=== PATIENT | male | born 1950 | race Caucasian/White ===

== ENCOUNTER 2018-04-19 12:13 | Emergency (ER) | payer SELFPAY ==
[2018-04-19 12:37] VITALS: BP 109/64
--- NOTE | 2018-04-19 12:52 | UC ---
Lower Extremity/Ankle HPI - History of Current Complaint Chief Complaint: UCLowerExtremity Stated Complaint: FOOT SWOLLEN Time Seen by Provider: 04/19/18 12:42 Hx Obtained From: Patient, Family/[employer] Onset/Duration: Gradual Onset - started exp R ankle swelling 1 week ago (before flying to [place] 2 days later L ankle swelled. swelling persists today, painful if pressure applied, denies calf redness or swelling. is taking B/P meds as rx' d. denies injury Severity Initially: Mild Severity Currently: Moderate Pain Intensity: 7 Aggravating Factor(s): Ambulation Alleviating Factor(s): Rest, Elevation Able to Bear Weight: Yes - Risk Factors DVT Risk Factors: Recent Travel - flew from [place] - Allergies/Home Medications Allergies/Adverse Reactions: Allergies Allergy/AdvReac Type Severity Reaction Status Date / Time No Known Allergies Allergy Verified 04/19/18 12:36 Home Medications: Home Medications Metoprolol Tartrate TAB* [Lopressor TAB*] 50 mg PO BID 04/19/18 [History Confirmed 04/19/18] amLODIPine TAB* [Norvasc 5 mg TAB*] 5 mg PO DAILY 04/19/18 [History Confirmed ] PMH/Surg Hx/FS Hx/Imm Hx Previously Healthy: Yes Cardiovascular History: Hypertension - Surgical History Surgical History: None - Family History Known Family History: Positive: Hypertension - Social History Occupation: Retired - [employer] Lives: With Family Alcohol Use: None Substance Use Type: None Smoking Status (MU): Former Smoker When Did the Patient Quit Smoking/Using Tobacco: 25 yrs ago Review of Systems Constitutional: Negative Skin: Negative Respiratory: Negative Cardiovascular: Negative Motor: Negative Neurovascular: Negative Musculoskeletal: Negative Neurological: Negative Psychological: Negative Is Patient Immunocompromised?: No All Other Systems Reviewed And Are Negative: Yes Physical Exam Triage Information Reviewed: Yes Appearance: Well-Appearing, No Pain Distress, Well-Nourished Vital Signs: Initial Vital Signs Temp 97.6 F 04/19/18 12:28 Pulse 51 04/19/18 12:28 Resp 16 04/19/18 12:28 BP 109/64 04/19/18 12:28 Pulse Ox 98 04/19/18 12:28 Vital Signs Reviewed: Yes Respiratory Exam: Normal Respiratory: Positive: Lungs clear, Normal breath sounds Cardiovascular Exam: Normal Cardiovascular: Positive: RRR, No Murmur, Pulses Normal, Brisk Capillary Refill , Other: - bilateral mild, nonpitting ankle swelling. no calf redness or swelling, neg Paula's sign. strong pedal pulses Musculoskeletal Exam: Normal Musculoskeletal: Positive: Strength Intact, ROM Intact Neurological Exam: Normal Neurological: Positive: Alert Psychological Exam: Normal Skin Exam: Normal Lower Extremity Course/Dx - Course Course Of Treatment: discussed concern for DVT, son states he will report to ER if he notes worsening symps, swelling, redness (son is a vetranarian) pain. does not want to go to ER now - Differential Dx/Diagnosis Differential Diagnosis/HQI/PQRI: Cellulitis, DVT, Strain, Other - CHF, pedal edema Provider Diagnoses: bilateral ankle edema Discharge - Sign-Out/Discharge Documenting (check all that apply): Discharge/Admit/Transfer - Discharge Plan Condition: Stable Disposition: HOME Patient Education Materials: Leg Edema (ED) Referrals: No Primary Care Phys,NOPCP [Primary Care Provider] - Additional Instructions: elevate legs, stay out of heat drink more water and avoid salty foods/beverages Report to Emergency room if symptoms worsen or new symptoms occur-especially chest pain, shortness of breath or calf swelling/pain - Billing Disposition and Condition Condition: STABLE Disposition: HOME
== END 2018-04-19 13:17 | disposition home or self-care (01) ==
LOC: UCEAST 12:13
DX: R60.0 Localized edema (principal); I10 Essential (primary) hypertension; Z87.891 Personal history of nicotine dependence
CPT/HCPCS: 99201; G0463